=== PATIENT | female | born 1965 | race Caucasian/White ===

== ENCOUNTER 2017-02-28 09:38 | Emergency (ER) | payer OTHER ==
[~2017-02-28] VITALS: Ht 160 cm; Wt 87.3 kg
[~2017-02-28 09:38] MED LIST: ADIPEX-P37.5 MG PO; ADULT LOW STREN81 M2 PO; ADVAIR 250/501 DISK IH; ALBUTEROL SULF8.5 GM IH; AMLODIPINE BESY10 MG PO; ASPIR-LOW81 MG PO; ATENOLOL50 MG PO; BENTYL20 MG PO; CARVEDILOL25 MG PO; CARVEDILOL6.25 MG PO; CLONIDINE HCL0.1 MG PO; DICYCLOMINE HCL10 MG PO; FLAGYL500 MG PO; HYDRALAZINE HC100 MG PO; HYDROCHLOROTHIA25 MG PO; HYDROCODON-ACE1 EAC7 PO; LIPITOR20 MG PO; LISINOPRIL10 MG PO; LISINOPRIL40 MG PO; LISINOPRIL5 MG PO; LORTAB 5-325 M1 EACH PO; MEGESTROL ACETA40 MG PO; METRONIDAZOLE500 MG PO; MOTRIN IB200 MG PO; NAPROXEN500 MG PO; PANTOPRAZOLE SO40 MG PO; PERCOCET 5/31 TABLET PO; PRINZIDE 20-121 EACH PO; PROAIR HFA8.5 GM IH; PROMETHAZINE HC25 M1 PO; RANITIDINE HCL150 MG PO; RANITIDINE HCL300 MG PO; SYMBICORT60 INHALAT IH; SYNTHROID25 MCG PO; TAMIFLU75 MG PO; TENORMIN50 MG PO; TYLENOL EXTRA500 MG PO; VENTOLIN HFA18 GM IH; VERAPAMIL HCL80 MG PO; VISINE TEARS DR30 ML BOTH EYES; WELCHOL625 MG PO; ZESTRIL20 MG PO; ZITHROMAX250 MG PO; ZOFRAN ODT4 MG PO; ZOFRAN ODT8 MG PO
[2017-02-28 10:16] LABS: HEMATOCRIT 37.2 % (36.0-46.0); MCH 29.9 PG (29.0-34.0); MCHC 33.9 G/DL (30.0-36.0); MCV 88.2 FL (83-99); MEAN PLAT.VOLUME 10.4 uM^3 (9.5-12.4); PLATELET COUNT 223 K/uL (156-360); RBC DIS.WIDTH-CV 12.5 % (11.8-14.6); RBC DIS.WIDTH-SD 40.3 % (39-53); RED BLOOD COUNT 4.22 M/uL (3.80-5.20)
[2017-02-28 10:28] LABS: CHLORIDE 109 mEq/L (99-109); SODIUM 145 mEq/L (136-147)
[2017-02-28 10:30] LABS: GLUCOSE 94 mg/dL (70-99)
[2017-02-28 10:31] LABS: ANION GAP 8 MEQ/L (2-14)
[2017-02-28 10:32] LABS: TOTAL BILIRUBIN 1.6 mg/dL (0.0-1.0)
[2017-02-28 10:34] LABS: ALKALINE PHOSPHATASE 147 IU/L (3-129); GFR ESTIMATE (CALCULATED) > 59 mL/min/
[2017-02-28 10:35] LABS: UREA NITROGEN (BUN) 15 mg/dL (9-23)
[2017-02-28 10:43] LABS: QUANTITATIVE HCG < 4.0 MIU/ML
[2017-02-28 10:54] LABS: ADD MIUA? YES; BILIRUBIN NEGATIVE; BLOOD NEGATIVE; COLOR AMBER ((YELLOW)); GLUCOSE (STRIP) NEGATIVE; KETONES NEGATIVE; LEUKOCYTES TRACE; NITRITE NEGATIVE; PROTEIN (STRIP) NEGATIVE; SPECIFIC GRAVITY 1.025 (1.000-1.030); UROBILINOGEN 0.2 MG/DL (0.2-1.0)
[2017-02-28 11:19] LABS: BACTERIA 1+ /HPF; EPITHELIAL CELLS 2+ /HPF; HYALINE CASTS 0-5 /LPF; MUCUS TRACE /LPF; RED BLOOD CELLS 0-5 /HPF (0-5); UCUL ADDED? NO; WHITE BLOOD CELLS 0-5 /HPF (0-5)
[2017-02-28 11:36] LABS: LIPASE 37 U/L (1.0-51.0)
[2017-02-28 12:15] LABS: EOSINOPHIL (%) 4.2 % (0-5); EOSINOPHIL COUNT 0.3 K/uL (0-0.3); IMMATURE GRANULOCYTE (%) 0.2 % (0.0-0.7); INSTRUMENT ABS NEUTROPHIL CT 3.8 K/uL; LYMPHOCYTE COUNT 1.6 K/uL (1.0-2.8); MONOCYTE (%) 5.2 % (3-12); MONOCYTE COUNT 0.3 K/uL (0-0.8); NEUTROPHIL (%) 63.4 % (45-76); NEUTROPHIL COUNT 3.8 K/uL (1.8-6.4)
[2017-02-28 13:42] LABS: DIRECT BILIRUBIN 0.5 mg/dL (0.0-0.3)
[2017-02-28] MEDS ORDERED: BENTYL20 MG PO (14:52)
[2017-02-28] MEDS ORDERED: ZOFRAN ODT4 MG PO (14:52)
[2017-02-28 16:00] VITALS: BP 170/82
== END 2017-02-28 16:14 | disposition home or self-care (01) ==
LOC: EME 09:38
PROVIDERS: Physician Assistant
DX: R10.32 Left lower quadrant pain (principal); R11.2 Nausea with vomiting, unspecified; Z90.49 Acquired absence of other specified parts of digestive tract; Z90.710 Acquired absence of both cervix and uterus; I10 Essential (primary) hypertension; E03.9 Hypothyroidism, unspecified; J45.909 Unspecified asthma, uncomplicated
CPT/HCPCS: 74177; 80053; 81003; 82248; 83605; 83690; 84702; 85025; 85027; 99281; 99285; J1885; J2405; J3010; J7030